=== PATIENT | female | born 1945 | race Caucasian/White ===

== ENCOUNTER 2023-05-31 14:31 | Emergency (ER) | payer MEDICARE ==
[2023-05-31] MEDS ORDERED: Sodium Chloride 0.9% 500 ML ONE (14:57)
[2023-05-31 15:36] LABS: ALT (SGPT) 17 U/L (8-55); AST (SGOT) 23 U/L (5-34); Albumin 4.3 g/dL (3.4-4.8); Alkaline Phosphatase 61 U/L (40-110); Anion Gap 14 mmol/L (10-20); BUN (Urea Nitrogen) 11 mg/dL (9.8-20.1); Bilirubin, Total 0.4 mg/dL (0.2-1.2); Calc. Creatinine Clearance 0 mL/min (70-130); Calcium 9.3 mg/dL (7.8-10.44); Carbon Dioxide 24 mmol/L (23-31); Chloride 101 mmol/L (98-107); Estimated GFR 70; Globulin 2.4 g/dL (2.4-3.5); Glucose 126 mg/dL (83-110); Lipase 18 U/L (8-78); Magnesium 2.2 mg/dL (1.6-2.6); Protein, Total 6.7 g/dL (5.8-8.1); Sodium 135 mmol/L (136-145); Troponin I Less than 0.010 ng/mL (< 0.028)
[2023-05-31 15:54] LABS: SARS-CoV-2 NAA Rapid Test DETECTED (NotDetected)
[2023-05-31 16:07] LABS: Band 21 % (5-11); Hematocrit 41.6 % (36.0-47.0); Hemoglobin 13.6 g/dL (12.0-16.0); Lymphocytes 8 % (21-51); MDiff Complete? YES; Mean Corpuscular HGB CONC 32.8 g/dL (32.0-36.0); Mean Corpuscular Hemoglobin 31.3 pg (27.0-31.0); Mean Corpuscular Volume 95.3 fl (78.0-98.0); Mean Platelet Volume 8.9 fL (7.4-10.4); Monocytes 8 % (0-10); Neutrophil 63 % (42-75); Platelet Adequacy Comment Appears Adequate; Platelet Count 144 10x3/uL (130-400); Red Blood Cell (RBC) Count 4.36 mill/uL (4.20-5.40); White Blood Cell (WBC) Count 5.1 10x3/uL (4.8-10.8)
== END 2023-05-31 17:42 | disposition home or self-care (01) ==
LOC: MADERS 14:31
DX: U07.1 COVID-19 (principal); R55 Syncope and collapse
CPT/HCPCS: 0240U; 70450; 71045; 80053; 83605; 83690; 83735; 83880; 84484; 85025; 93005; 36415; 96360; J7030

== ENCOUNTER 2024-12-30 11:35 | Emergency (ER) | payer MEDICARE | END 2024-12-30 15:30 | disposition home or self-care (01) | LOC: MADERS 11:35 | DX: S32.011A Stable burst fracture of first lumbar vertebra, initial encounter for closed fracture (principal); W19.XXXA Unspecified fall, initial encounter | CPT/HCPCS: 72100; 99283 ==